=== PATIENT | male | born 1955 | race Caucasian/White ===

== ENCOUNTER 2024-12-02 17:07 | Emergency (ER) | payer OTHER ==
[~2024-12-02] VITALS: Ht 177.8 cm; Wt 81.6 kg
[2024-12-02 17:29] LABS: URINE BILIRUBIN - DIPSTICK Negative (NEGATIVE); URINE BLOOD DIPSTICK Moderate (NEGATIVE); URINE GLUCOSE - DIPSTICK Negative (NEGATIVE); URINE KETONE Negative (NEGATIVE); URINE LEUK ESTERASE Negative (NEGATIVE); URINE NITRITE - DIPSTICK Negative (Negative); URINE PH 5.5 (4.5-8.0); URINE PROTEIN - DIPSTICK Negative (NEG-TRACE); URINE UROBILINOGEN - DIPSTICK 0.2 E.U./dL (0.2)
[2024-12-02 17:30] LABS: URINE COLOR Yellow
[2024-12-02 17:52] LABS: BASO% 0.9 % (0-3); EOS% 1.9 % (0-8); HEMATOCRIT 40.4 % (39.0-50.0); HEMOGLOBIN 13.9 g/dl (14.0-18.0); IMMATURE GRANULOCYTES 0.2 % (0.0-5.0); LYMPH% 26.6 % (15-41); MEAN CELL VOLUME 95.1 fL CALC (80.0-100.0); MEAN CORPUSCULAR HGB 32.7 pG CALC (26.0-32.0); MEAN CORPUSCULAR HGB CONC 34.4 g/dL CAL (32.0-36.0); MONO% 10.5 % (2-13); NEUT# 3.42 thou/uL (1.82-7.42); NEUT% 59.9 % (42-76); RED BLOOD COUNT 4.25 mill/uL (4.70-6.10)
[2024-12-02 18:02] LABS: ALBUMIN 4.2 g/dL (3.2-5.0); BILIRUBIN, TOTAL 0.5 mg/dL (0.2-1.3); CREATININE 0.8 mg/dL (0.7-1.3); POTASSIUM 4.1 mmol/l (3.5-5.1); TOTAL PROTEIN 7.2 g/dL (6.3-8.2)
[2024-12-02 18:08] LABS: PROTHROMBIN TIME 10.4 SECONDS (9.0-12.5)
[2024-12-02 19:01] VITALS: BP 127/74
[2024-12-02 19:15] VITALS: BP 141/77
[2024-12-02 19:31] VITALS: BP 138/73
[2024-12-02 19:45] VITALS: BP 137/79
[2024-12-02 20:00] VITALS: BP 130/81
[2024-12-02 20:13] VITALS: BP 130/81
== END 2024-12-02 20:13 | disposition home or self-care (01) | DRG 696 ==
LOC: ED 17:07
PROVIDERS: Nurse Practitioner
DX: R31.9 Hematuria, unspecified (principal); F17.200 Nicotine dependence, unspecified, uncomplicated
CPT/HCPCS: Q9967